=== PATIENT | female | born 1935 | race Caucasian/White ===

== ENCOUNTER 2016-12-06 08:33 | Day surgery (SDC) | payer MEDICARE ==
--- NOTE | ~2016-12-06 | EGD ---
EGD REPORT [facility] [address] [id number] NAME: ANA LUISA BAUER : 39 STATUS : REG [facility]#: [id number] AGE: 81 ADM/REG DATE : 12/06/16 MR#: [id number] REPORT SERV DATE: 12/06/16 DICTATED BY: PRABHU GUTIERREZ DATE: 12/06/16 REPORT STATUS : Draft [facility]ED BY: [facility] DATE: 12/06/16 Endoscopy Center Patient Name: Ana Luisa Bauer Date of : 1935 Attending MD: PRABHU GUTIERREZ MD Procedure Date No Time: 12/06/2016 Procedure: Upper GI endoscopy Indications: Dysphagia, Heartburn; Nexium OTC daily. Patient Profile: Informed consent was obtained from the patient by me prior to the procedure. Risks, benefits, and alternatives were discussed including the risk of bleeding, perforation, infection, reaction to medicine, missed lesion, and cardiopulmonary complications. Referring MD: ANETTE PINEDA Medicines: Monitored Anesthesia Care Complications: No immediate complications. Procedure: Pre-Anesthesia Assessment: - ASA Grade Assessment: II - A patient with mild systemic disease. After obtaining informed consent, the endoscope was passed under direct vision. Throughout the procedure, the patient's blood pressure, pulse, and oxygen saturations were monitored continuously. The GIF [id number] was introduced through the mouth, and advanced to the second part of duodenum. The endoscope was withdrawn with careful examination all mucosal surfaces including retroflexion stomach. The upper GI endoscopy was accomplished without difficulty. The patient tolerated the procedure well. Findings: The examined duodenum was normal. Patchy mildly erythematous mucosa was found in the gastric body and in the gastric antrum. Biopsies were taken with a cold forceps for histology. The cardia and gastric fundus (on retroflexion) were normal. The examined esophagus was normal. Biopsies were taken with a cold forceps for histology from mid and upper. 48F Savary dilation performed over guidewire held in antrum; minimal resistance to dilation; endoscopic visualization afterwards no mucosal breaks. The esophagus and gastroesophageal junction were examined with white light. There was no visual evidence of Bosch's esophagus. Impression: - Normal examined duodenum. - Erythematous mucosa in the gastric body and antrum. EGD REPORT [address] [address] NAME: ANA LUISA BAUER : 39 STATUS : REG [facility] [place] PAT#: [id number] AGE: 81 ADM/REG DATE : 12/06/16 MR#: [id number] REPORT SERV DATE: 12/06/16 DICTATED BY: PRABHU GUTIERREZ DATE: 12/06/16 REPORT STATUS : Draft TRANSCRIBED BY: [employer] DATE: 12/06/16 Biopsied. - Normal cardia and gastric fundus. - Normal esophagus. Biopsied. Dilated. - There is no endoscopic evidence of Bosch's esophagus. Recommendation: - Patient has a contact number available for emergencies. The signs and symptoms of potential delayed complications were discussed with the patient. Return to normal activities tomorrow. Written discharge instructions were provided to the patient. - Regular diet. - Continue present medications. - Await pathology results. - F/u office prn. Procedure Code(s): --- Professional --- 39426, Esophagogastroduodenoscopy, flexible, transoral; with insertion of guide wire followed by passage of dilator(s) through esophagus over guide wire 43702, Esophagogastroduodenoscopy, flexible, transoral; with biopsy, single or multiple Diagnosis Code(s): --- Professional --- K31.9, Disease of stomach and duodenum, unspecified R13.10, Dysphagia, unspecified R12, Heartburn CPT copyright 2013 [employer]. All rights reserved. The codes documented in this report are preliminary and upon jackspooler review may be revised to meet current compliance requirements. PRABHU GUTIERREZ MD 12/06/2016 10:14 AM This report has been signed electronically. Number of Addenda: 0 Note Initiated On: 12/06/2016 9:43 AM Scope Withdrawal Time 0 hours 0 minutes 0 seconds [address] [id number]
[~2016-12-06 08:33] MED LIST: ACET500CAP PO; ARICEPT5 PO; ATV.5 PO; CALTRA600D PO; CALTRAT600 PO; DSS PO; FISH OIL300 MG PO; FISH-EPA1000 MG PO; LEXAPRO10 PO; MOBIC15 MG PO; NEXIUM40 PO; PRENATAL1 TAB PO; PRENAVITE PO; PREPARATION H1 SUPP PR; PRILO PO; PROBIOTIC PO; ZANTAC150 MG PO; ZOL50 PO
== END 2016-12-06 23:59 | disposition home health service (06) ==
LOC: DMU 08:33
PROVIDERS: Internal Medicine Gastroenterology
PROC: 0DB18ZX Excision of Upper Esophagus, Via Natural or Artificial Opening Endoscopic, Diagnostic (ICD-10-PCS; 2016-12-06)
PROC: 0D758ZZ Dilation of Esophagus, Via Natural or Artificial Opening Endoscopic (ICD-10-PCS; principal; 2016-12-06 10:30)
PROC: 0DB68ZX Excision of Stomach, Via Natural or Artificial Opening Endoscopic, Diagnostic (ICD-10-PCS; 2016-12-06 10:30)
DX: K31.9 Disease of stomach and duodenum, unspecified (principal); K21.9 Gastro-esophageal reflux disease without esophagitis; N18.6 End stage renal disease; G43.909 Migraine, unspecified, not intractable, without status migrainosus; F41.9 Anxiety disorder, unspecified; M19.90 Unspecified osteoarthritis, unspecified site; Z88.8 Allergy status to other drugs, medicaments and biological substances; F03.90 Unspecified dementia, unspecified severity, without behavioral disturbance, psychotic disturbance, mood disturbance, and anxiety; Z98.890 Other specified postprocedural states; Z90.49 Acquired absence of other specified parts of digestive tract; Z90.710 Acquired absence of both cervix and uterus
CPT/HCPCS: 88305